=== PATIENT | male | born 1970 | race Hispanic/Latino ===

== ENCOUNTER 2020-07-18 15:26 | Emergency (ER) | payer MEDICAID ==
--- NOTE | 2020-07-18 15:45 | Event Note ---
ED Screening Note Date of service: 07/18/20 Time: 15:44 ED Screening Note: Pleasant 50-year-old male presents the emerge department chief complaint of bilateral lower extremity swelling with wound to the anterior bilateral lower leg with weeping. Denies any injury. Denies any known past medical history. This initial assessment/diagnostic orders/clinical plan/treatment(s) is/are subject to change based on patients health status, clinical progression and re- assessment by fellow clinical providers in the ED. Further treatment and workup at subsequent clinical providers discretion. Patient/guardian urged not to elope from the ED as their condition may be serious if not clinically assessed and managed. Initial orders include: CBC, CMP, BNP, coag, ultrasound bilateral
--- NOTE | 2020-07-18 16:52 | Vascular Lab Report ---
DUPLEX DOPPLER LOWER EXTREMITY VEINS, BILATERAL INDICATION / CLINICAL INFORMATION: pain, swelling. TECHNIQUE: Duplex doppler imaging was performed through the veins of both lower extremities using venous [place] j[place] and other maneuvers. COMPARISON: None available. FINDINGS: RIGHT COMMON FEMORAL VEIN: Negative. RIGHT FEMORAL VEIN: Negative. RIGHT POPLITEAL VEIN: Negative. RIGHT CALF VEINS: Negative. LEFT COMMON FEMORAL VEIN: Negative. LEFT FEMORAL VEIN: Negative. LEFT POPLITEAL VEIN: Negative. LEFT CALF VEINS: Negative. ADDITIONAL FINDINGS: None. IMPRESSION: 1. No sonographic evidence for DVT in either lower extremity. Signer Name: Phuc Juarez MD Signed: 07/18/2020 4:47 PM Workstation Name: [id number]
[2020-07-18 18:40] VITALS: BP 153/95
--- NOTE | 2020-07-18 18:45 | Emergency Department Report ---
HPI - General Chief Complaint: Extremity Problem,Nontraumatic Time Seen by Provider: 07/18/20 18:27 - HPI HPI: This is a 50-year-old male who presents to the emergency department with complaint of bilateral leg pain and the development of some wounds/ulcers that has been going on for the past month. The patient has not attempted any treatments or seen any healthcare providers regarding the symptoms. He denies any past medical history but once again does not follow-up with a primary care physician. He is a tobacco smoker. No recent travel or sick contacts at home. The right leg just recently started weeping some fluid. No known aggravating or alleviating factors. The patient is able to bear weight and ambulate. ED Past Medical Hx - Past Medical History Previous Medical History?: No - Surgical History Past Surgical History?: No - Medications Home Medications: Home Medications Medication Instructions Recorded Confirmed Last Taken Type HYDROcodone/APAP 5-325 [[place] 1 each PO Q6HR PRN #12 tablet 07/18/20 Unknown Rx 5/325] Sulfamethoxazole/Trimethoprim 1 each PO BID #20 tablet 07/18/20 Unknown Rx [Bactrim DS TAB] ED Review of Systems ROS: Stated complaint: LORI LEG PAIN Other details as noted in HPI Comment: All other systems reviewed and negative Constitutional: denies: chills, fever Respiratory: denies: shortness of breath Cardiovascular: denies: chest pain Gastrointestinal: denies: abdominal pain, vomiting Musculoskeletal: arthralgia, myalgia Skin: lesions. denies: pruritus Neurological: denies: numbness, paresthesias Physical Exam - Physical Exam Vital Signs: Vital Signs 07/18/20 15:38 Temperature 98.6 F Pulse Rate 105 H Respiratory 16 Rate Blood Pressure 153/95 O2 Sat by Pulse 97 Oximetry Physical Exam: GENERAL: The patient is well-developed well-nourished. HENT: Normocephalic. Atraumatic. Patient has moist mucous membranes. EYES: Extraocular motions are intact. NECK: Supple. Trachea is midline. CHEST/LUNGS: Clear to auscultation. There is no respiratory distress noted. HEART/CARDIOVASCULAR: Regular. There is no tachycardia. There is no murmur. ABDOMEN: Abdomen is soft, nontender. Patient has normal bowel sounds. SKIN: Skin is warm and dry. There is erythema to the anterior right tib-fib to the distal two thirds. In the middle of the erythema there is an ulcerating wound with some straw-colored serous discharge/drainage. NEURO: The patient is awake, alert, and oriented. The patient is cooperative. The patient has no focal neurologic deficits. Normal speech. MUSCULOSKELETAL: There is tenderness to palpation to the bilateral distal lower extremities with right much greater than left. Capillary refill less than 2 seconds. +2/4 dorsalis pedis pulse bilaterally. ED Course Vital Signs 07/18/20 15:38 Temperature 98.6 F Pulse Rate 105 H Respiratory 16 Rate Blood Pressure 153/95 O2 Sat by Pulse 97 Oximetry - Reevaluation(s) Reevaluation #1: 07/18/20 22:40 Lab Results 07/18/20 07/18/20 Range/Units 19:23 19:23 WBC 11.8 H (4.5-11.0) K/mm3 RBC 4.83 (3.65-5.03) M/mm3 Hgb 15.5 H (11.8-15.2) gm/dl Hct 44.9 (35.5-45.6) % MCV 93 (84-94) fl MCH 32 (28-32) pg MCHC 35 H (32-34) % RDW 13.1 L (13.2-15.2) % Plt Count 362 (140-440) K/mm3 Lymph % (Auto) 16.9 (13.4-35.0) % [place] % (Auto) 6.2 (0.0-7.3) % Eos % (Auto) 1.3 (0.0-4.3) % Baso % (Auto) 0.9 (0.0-1.8) % Lymph # (Auto) 2.0 (1.2-5.4) K/mm3 [place] # (Auto) 0.7 (0.0-0.8) K/mm3 Eos # (Auto) 0.1 (0.0-0.4) K/mm3 Baso # (Auto) 0.1 (0.0-0.1) K/mm3 Seg Neutrophils % 74.7 H (40.0-70.0) % Seg Neutrophils # 8.8 H (1.8-7.7) K/mm3 Sodium 136 L (137-145) mmol/L Potassium 4.6 (3.6-5.0) mmol/L Chloride 98.6 (98-107) mmol/L Carbon Dioxide 29 (22-30) mmol/L Anion Gap 13 mmol/L BUN 13 (9-20) mg/dL Creatinine 1.0 (0.8-1.3) mg/dL Estimated GFR > 60 ml/min BUN/Creatinine Ratio 13 % Glucose 140 H (75-100) mg/dL Calcium 9.2 (8.4-10.2) mg/dL Total Bilirubin 0.60 (0.1-1.2) mg/dL AST 21 (5-40) units/L ALT 104 H (7-56) units/L Alkaline Phosphatase 130 H (35-129) units/L NT-Pro-B Natriuret Pep 43.15 (0-900) pg/mL Total Protein 7.2 (6.3-8.2) g/dL Albumin 3.7 L (3.9-5) g/dL Albumin/Globulin Ratio 1.1 % ED Medical Decision Making - Lab Data Result diagrams: 07/18/20 19:23 07/18/20 19:23 - Radiology Data Radiology results: report reviewed, image reviewed interpreted by me: X-ray of the right tib-fib does not show any fracture, dislocation, or signs of osteomyelitis. DUPLEX DOPPLER LOWER EXTREMITY VEINS, BILATERAL INDICATION / CLINICAL INFORMATION: pain, swelling. TECHNIQUE: Duplex doppler imaging was performed through the veins of both lower extremities using venous compression and other m aneuvers. COMPARISON: None available. FINDINGS: RIGHT COMMON FEMORAL VEIN: Negative. RIGHT FEMORAL VEIN: Negative. RIGHT POPLITEAL VEIN: Negative. RIGHT CALF VEINS: Negative. LEFT COMMON FEMORAL VEIN: Negative. LEFT FEMORAL VEIN: Negative. LEFT POPLITEAL VEIN: Negative. LEFT CALF VEINS: Negative. ADDITIONAL FINDINGS: None. IMPRESSION: 1. No sonographic evidence for DVT in either lower extremity. - Medical Decision Making This patient presents with a complaint of a 1 month history of bilateral lower extremity pain and progressively worsening ulcerating wound to the right leg. Patient does appear to have a cellulitis with some central ulceration and serous drainage. Venous Doppler ultrasound was ordered through triage but was negative for DVT in either lower extremity. The patient has good distal pulses and capillary refill less than 2 seconds, so there does not appear to be any significant arterial insufficiency. Labs are mostly unremarkable except for an elevation in the ALT. X-ray of the right tib-fib does not show any fracture, dislocation, or signs of osteomyelitis. Vital signs have been reassuring throughout his ED course including being afebrile. Patient will be discharged home with some pain medication and antibiotics. He has been given outpatient referral for primary care and the wound care clinic. He will return to the emergency department with any worsening of his symptoms or with any acute distress. Critical Care Time: No Critical care attestation.: If time is entered above; I have spent that time in minutes in the direct care of this critically ill patient, excluding procedure time. ED Disposition Clinical Impression: Cellulitis of right leg, Right leg pain Disposition: DC- TO HOME OR SELFCARE Is pt being admited?: No Condition: Stable Instructions: Cellulitis, Adult Additional Instructions: Please follow-up with a primary care physician in the next few days. I am also giving you a referral for the wound care clinic to follow-up regarding your cellulitis and ulcers of your right leg. Take the antibiotics as prescribed. Clean the area with soap and water multiple times per day and then keep it dry. Please stop smoking. Not only will smoking because heart and lung disease, but it will also significantly delay your wound healing. You have been prescribed a medication that is sedating and therefore should not be taken prior to driving, working, and responsible for children and in no way should be mixed with alcohol of any quantity. Return to the emergency department with any worsening of your symptoms, new or concerning symptoms not addressed during this current emergency department visit, or with any acute distress. Prescriptions: Sulfamethoxazole/Trimethoprim [Bactrim DS TAB] 1 each PO BID #20 tablet HYDROcodone/APAP 5-325 [[place] 5/325] 1 each PO Q6HR PRN #12 tablet PRN Reason: Pain Referrals: VIKI NETTLES MD [Primary Care Provider] - 2-3 Days DANNY MCCARTY MD [Staff Physician] - 2-3 Days [facility] [Provider Group] - 2-3 Days [facility] [Outside] - 2-3 Days Time of Disposition: 20:58
--- NOTE | 2020-07-18 19:31 | XRay Report ---
RIGHT TIBIA-FIBULA 4 VIEW(S) INDICATION / CLINICAL INFORMATION: Right leg pain and ulcers COMPARISON: None available. FINDINGS: BONES / JOINT(S): No acute fracture or subluxation. No significant arthritis. SOFT TISSUES: Moderate diffuse subcutaneous edema likely secondary to cellulitis ADDITIONAL FINDINGS: None. Signer Name: Lake Farrar MD Signed: 07/18/2020 7:27 PM Workstation Name: [id number]
[2020-07-18 20:07] LABS: Basophils # (Auto) 0.1 K/mm3 (0.0-0.1); Basophils % (Auto) 0.9 % (0.0-1.8); Eosinophils # (Auto) 0.1 K/mm3 (0.0-0.4); Eosinophils % (Auto) 1.3 % (0.0-4.3); Hematocrit 44.9 % (35.5-45.6); Hemoglobin 15.5 gm/dl (11.8-15.2); Lymphocytes % (Auto) 16.9 % (13.4-35.0); Mean Corpuscular HGB Conc 35 % (32-34); Mean Corpuscular Volume 93 fl (84-94); Monocytes # (Auto) 0.7 K/mm3 (0.0-0.8); Monocytes % (Auto) 6.2 % (0.0-7.3); Platelet Count 362 K/mm3 (140-440); Red Blood Count 4.83 M/mm3 (3.65-5.03); Red Cell Distribution Width 13.1 % (13.2-15.2)
[2020-07-18] MEDS ORDERED: SULFAMETHOXAZOLE/TRIMETHOPRIM 800/160MG DS TAB PO ONE (20:20)
[2020-07-18 20:35] LABS: Alanine Aminotransferase 104 units/L (7-56); Albumin 3.7 g/dL (3.9-5); BUN/Creatinine Ratio 13; Blood Urea Nitrogen 13 mg/dL (9-20); Calcium 9.2 mg/dL (8.4-10.2); Hemolysis Index 36
== END 2020-07-18 21:05 | disposition home or self-care (01) ==
LOC: ED 15:26
DX: L03.115 Cellulitis of right lower limb (principal)
CPT/HCPCS: 36415; 80053; 83880; 85025; 93970

== ENCOUNTER 2020-07-30 07:05 | Emergency (ER) | payer MEDICAID ==
[2020-07-30 07:20] VITALS: BP 130/88
== END 2020-07-30 07:30 | disposition left against medical advice (07) ==
LOC: ED 07:05
DX: L03.115 Cellulitis of right lower limb (principal); Z53.21 Procedure and treatment not carried out due to patient leaving prior to being seen by health care provider